=== PATIENT | female | born 1955 | race Caucasian/White ===

== ENCOUNTER → 2017-06-15 | Day surgery (SDC) | payer OTHER ==
--- NOTE | 2017-06-16 14:46 | PATH ---
Surgical Pathology Report Patient Name: YASMIN ACUNA [facility]. Rec. #: [id number] /Age/Gender: 1955 (Age: 61) / F Account: [id number] Location: [facility] Taken: 06/15/2017 Received: 06/15/2017 Reported: 06/16/2017 Physicians: Emilia Winston M.D. Specimen(s) Received A: LEFT BREAST CORE BIOPSY 2 O'CLOCK, 3 CM FN B: RIGHT BREAST 1:00 O'CLOCK, 7CM FN Clinical History Ultrasound findings: Suspicious Final Diagnosis A. LEFT BREAST, 2:00 3 CM FROM NIPPLE, ULTRASOUND GUIDED NEEDLE CORE BIOPSY: BENIGN BREAST TISSUE WITH FIBROCYSTIC CHANGES INCLUDING COLUMNAR CELL CHANGE, STROMAL FIBROSIS, AND DUCTAL DILATATION. B. RIGHT BREAST, 1:00 7 CM FROM NIPPLE, ULTRASOUND GUIDED NEEDLE CORE BIOPSY: WELL DIFFERENTIATED INVASIVE DUCTAL CARCINOMA, 0.3 CM IN LENGTH MEASURED ON THE SLIDE. Results of Estrogen Receptor (ER) and Progesterone Receptor (NE) studies performed on block "B" at [facility] are as follows: ER (clone [id number] mouse monoclonal antibody by [employer]): 100% nuclear staining with strong intensity (Positive). NE (clone16 mouse monoclonal antibody by Leica): ~80% nuclear staining with moderate intensity (Positive). Positive and negative controls (internal if applicable) show appropriate results. Formalin fixation and cold ischemic times are within current ASCO/CAP recommendations for ER, NE and Her2 testing. Comment: Immunohistochemical stains for p63 and smooth muscle myosin heavy chain on Specimen B show loss of the myoepithelial cell layer in the areas of carcinoma. Assays for HER-2/zohaib and Ki67 are pending, and a report will follow. Electronically Signed Roly Zhang M.D. Addendum Reported: 06/18/2017 Addendum Diagnosis Results of Her2 (IHC) & Ki-67 studies performed on block "B " at [place], [place] ([id number]) are as follows: Her2 IHC (EP3 from [employer], formerly known as [id number], using Brandon Polymer Refine detection kit): 1+ (Negative) Ki-67: up to 5% (Low proliferative index). Positive and negative controls (internal if applicable) show appropriate results. Katlyn Mane M.D. Gross Description A. Received in formalin labeled "left breast biopsy 2:00, 3 cmfn," is a 1.5 x 1.3 x 0.3 cm aggregate of multiple sarkar-yellow, irregular to cylindrical portions of fibroadipose tissue. The formalin is filtered and the specimen is entirely submitted in one cassette. B. Received in formalin labeled "right breast biopsy 1:00, 7 cmfn," is a 2.2 x 2.0 x 0.3 cm aggregate of multiple sarkar-yellow, irregular to cylindrical portions of fibroadipose tissue admixed with blood clot. The formalin is filtered and the specimen is entirely submitted in one cassette. Time to formalin fixation: 2 minutes Total formalin fixation time: Approximately 8 hours 06/15/2017
== END | disposition home or self-care (01) ==
LOC: FRADUS-SUR 13:11
PROVIDERS: ATTEND Surgery Surgical Oncology
PROC: 0HBV3ZX Excision of Bilateral Breast, Percutaneous Approach, Diagnostic (ICD-10-PCS; principal; 2017-06-15)
DX: C50.911 Malignant neoplasm of unspecified site of right female breast (principal); N60.12 Diffuse cystic mastopathy of left breast; Z17.0 Estrogen receptor positive status [ER+]
CPT/HCPCS: 19083; 87899; 88305-TC; 88341-TC; 88342-TC; A4648; G0204-TC

== ENCOUNTER 2017-07-07 08:37 | Day surgery (SDC) | payer OTHER ==
--- NOTE | 2017-07-01 09:24 | HP ---
Admitting History and Physical - Primary Care Physician PCP: Roge Nassar - Admission Chief Complaint: Right breast cancer History of Present Illness: 61 year old postmenapausal female with H/O of breast bx in 199 showing fibroadenoma and right excisional biopsies at 7:00 and 10:00. Mammogram and US 05/2017 showed suspicious mass right 1:00 7 cm fn 5x6x6 mm and left more benign density at 2:00 and 1 cm density. Bilateral US core biopsy 06/2017 Breast MRI 06/2017 showed left benign dz and right 1:00 newly diagnosed cancer. showed Right 1:00 invasive ductal carcinoma ER/ RI positive. and left 2:00 was benign. History Source: Patient Limitations to Obtaining History: No Limitations - Past Medical History Cardiovascular: Yes: HTN, Hyperlipdemia - Past Surgical History Past Surgical History: Yes: Hysterectomy (TAHBSO 2010 benign) Additional Past Surgical History: Right breast bx excisional benign - Smoking History Smoking history: Never smoked Have you smoked in the past 12 months: No - Alcohol/Substance Use Hx Alcohol Use: Yes (2 ) Home Medications - Allergies Allergies/Adverse Reactions: Allergies Allergy/AdvReac Type Severity Reaction Status Date / Time No Known Allergies Allergy Verified 07/01/17 09:26 - Home Medications Home Medications (free text): simvastatin ,telmisartan Family Disease History - Family Disease History Family Disease History: CA: Grandparent (pat GM uterine ca75), Father (gastric ca 80), Mother (breast ca 81) Other Family History: mat aunt uterine 50 Physical Examination Constitutional: Yes: Well Nourished Breast(s): Yes: Other (symmetrical C cup breast bilaterally slight thickening 12 :00 right upper region left breast negative no palpable adenopathy) Problem List - Problems (1) Breast cancer, right Code(s): C50.911 - MALIGNANT NEOPLASM OF UNSP SITE OF RIGHT FEMALE BREAST Qualifiers: Breast location: upper inner quadrant of breast Patient sex: female Assessment/Plan Right breast wide excision mammogram needle localization, sentenel node biopsy possible axillary dissection, lymphoscintigram, possible intraop radiation
[2017-07-01 14:22] VITALS: BMI 26.7
[2017-07-07] MEDS ORDERED: MIDAZOLAM HCL 2 MG/2 ML SINGLE DOSE VIAL ONE (12:58)
[2017-07-07] MEDS ORDERED: ISOSULFAN BLUE 10 MG/ML VIAL SQ ONE (13:21)
[2017-07-07] MEDS ORDERED: BUPIVACAINE HCL/PF 2.5 MG/ML - 30 ML VIAL IJ ONE (13:21)
[2017-07-07] MEDS ORDERED: oxyCODONE HCL 5 MG TABLET PO PRN (15:01)
[2017-07-07] MEDS ORDERED: ONDANSETRON 4 MG/2 ML VIAL IVPUSH PRN ×2 (15:01→16:30)
[2017-07-07] MEDS ORDERED: LACTATED RINGERS SOLUTION 1,000 ML IV SCH (15:15)
[2017-07-07] MEDS ORDERED: BUPIVACAINE HCL/PF 0.25% (2.5MG/ML) 10 ML VIAL IJ ONE ×2 (15:55→16:01)
[2017-07-07] MEDS ORDERED: KETOROLAC TROMETHAMINE 30 MG/1 ML VIAL IVPUSH PRN (16:30)
[2017-07-07] MEDS ORDERED: DEXTROSE 5%-0.45% SALINE 1,000 ML IV SCH (16:30)
--- NOTE | 2017-07-07 17:24 | OP ---
DATE OF OPERATION: 07/07/2017 PREOPERATIVE DIAGNOSIS: Right breast cancer, upper inner quadrant. POSTOPERATIVE DIAGNOSIS: Right breast cancer, upper inner quadrant. PROCEDURE: Right breast partial mastectomy with mammographic needle localization, with intraoperative radiation and tissue transfer 3 x 4 cm closure. SURGEON: Brooke Nassar MD LICENSED SALES ASSISTANT: DAGMAR Fairbanks COMPLICATIONS: None. Briefly, the patient is a 61-year-old, G3, P0, post-menopausal female of [place] descent with a family history with her mother who had breast cancer at age 81. The patient underwent the mammography in May 2017, showing a new density towards the right breast upper inner quadrant, 7 cm from the nipple, measuring about 6 mm. Core biopsy showed a well-differentiated, invasive duct cancer which was ER/VT positive and HER2/zohaib negative with a low Ki-67 at 5%. She underwent an MRI showing localized disease. The patient was advised of undergoing a right breast partial mastectomy and sentinel lymph node biopsy and was seen by Radiation Oncology preoperatively and was a good candidate for the Target US trial. The patient understood the need for the wide excision and decided to enter the Target US trial. She was brought in for the procedure on July 07, 2017. [facility] went to [facility] where a mammographic needle localization and lymphoscintigraphy were performed. She was brought to the [facility], and in the holding area, site verification was made and informed consent was obtained. She did sign consent for the Target US trial as well as a Quality of Life trial. Site verification was made, and informed consent was obtained. DESCRIPTION OF PROCEDURE: She was brought into the operating room, laid on the OR table in the supine position. Venodynes were placed on the lower extremities prior to induction. She received general laryngeal mask airway anesthesia. The right breast was sterilely prepped and draped in usual fashion with the right arm prepped in the field. Next, 3 mL of Lymphazurin blue were injected intradermally and peritumorally around the needle localization site. An incision was made just below the hair-bearing area of the right axilla, and dissection was undertaken. A blue lymphatic was seen coursing to 2 blue hot lymph nodes. The first sentinel lymph node had a 10-second gamma count of 1400. The second sentinel node had a 10-second gamma count of 2653. Background count after removal of these 2 nodes was 136. No other blue or hot nodes were found, and hemostasis was achieved using electrocautery. The wound was then closed using interrupted 2-0 plain suture, and then, the skin was closed using interrupted 3-0 deep dermal Vicryl suture and a 4-0 subcuticular Biosyn suture. At this point, the wide excision was undertaken. A small ellipse of skin was removed just below the needle-localization site in the upper inner aspect of the right breast. Incision was made. Dissection was undertaken around the needle localization until the breast tissue was completely removed from around the tip of the wire, with the wire in the middle of the specimen. The specimen was removed all the way down to the pectoralis major muscle. The tissue was then x-rayed, showing the clip in the middle of the specimen. The specimen was oriented with a long lateral, short superior suture and sent to Pathology in formalin. Separate margins were then taken on the superior, inferior, medial, lateral, and deep aspects with sutures marking the biopsy cavity side. At this point, intraoperative radiation was accomplished using the 4-cm INTRABEAM device which was placed sterilely in the wound. A 2-0 plain suture was used to pursestring the tissue around the device. Intraoperative radiation was then accomplished after about 25 minutes. The INTRABEAM device was then removed from the wide excision cavity. The breast tissue was then reapproximated as a 4 x 3 tissue transfer closure by undermining the breast tissue, reapproximated using 2-0 plain suture. The skin was closed using interrupted 3-0 deep dermal Vicryl suture and a running 4-0 subcuticular Biosyn suture. Mastisol and Steri-Strips were applied over the wound with a compressive dressing placed over this. She was placed in a surgical bra postoperatively. Next, 0.25% Marcaine was injected into the wound prior to closure for postoperative pain control. The patient had the laryngeal mask airway tube removed at the end of the case and was brought to the postanesthesia care unit. She was recovered and will be discharged home the same day. The patient will follow up in 1 week for a formal wound pathology check. All sponge and needle counts were correct at the end of the case, and estimated blood loss was about 20 mL. She was hemodynamically stable throughout. BROOKE NASSAR M.D. [id number]
[2017-07-07 17:35] VITALS: TEMP 97.1
[2017-07-07 18:09] VITALS: BP 117/72; PULSE 62
--- NOTE | 2017-07-07 18:53 | OP ---
DATE OF OPERATION: 07/07/2017 PREOPERATIVE DIAGNOSIS: Right breast cancer. POSTOPERATIVE DIAGNOSIS: Right breast cancer. PROCEDURE PERFORMED: Post lumpectomy intraoperative radiation therapy for right breast cancer. SURGEON: Brooke Nassar M.D. [employer]ARMWORK[employer]/RADIATION ONCOLOGIST: Lanie Barajas M.D. ANESTHESIA: General. COMPLICATIONS: None. INDICATIONS: The patient is a 61-year-old woman with a clinical stage IA invasive ductal carcinoma of the right breast, who elects breast conservation surgery with IORT treatment on the [facility]. DESCRIPTION OF PROCEDURE: Dr. Nassar performed a right lumpectomy and sentinel lymph node biopsy, which he has dictated. After excision of additional margins, the lumpectomy cavity was prepared and sized with a 4.0-cm diameter spherical applicator, which was placed into the operative cavity at 12:00. The surrounding breast tissues were cinched around the applicator with a Vicryl purse-string suture. I performed a clinical and ultrasound simulation to ensure that the applicator was located within the operative bed, with close apposition of the surrounding breast tissue to the surface of the applicator. Saline-soaked gauze was placed between the skin and breast tissue, ultrasound measurements demonstrated a minimum 1.5-cm [id number] distance at the 12 o'clock aspect of the applicator. Shielding material was placed over the breast to reduce scatter radiation. The patient received a total dose of 20 Gy, prescribed to 0 mm from the applicator surface, using 50 kV x-rays with the Intrabeam system. Prior to treatment, the system was double checked with appropriate physics water quality tester measures. The total time required for the treatment was 28 minutes 49 seconds at a dose rate of 0.709 Gy per minute. When the treatment was completed, survey of the patient and room confirmed that the Intrabeam source was off. There were no complications or unexpected interruptions. Dr. Nassar removed the radiation applicator from the patient and completed the surgery. The patient will be transferred to the recovery room following the surgery. LANIE BARAJAS M.D. [id number] cc: BROOKE NASSAR M.D. [facility]
--- NOTE | 2017-07-10 12:06 | PATH ---
Surgical Pathology Report Patient Name: YASMIN ACUNA Med. Rec. #: [id number] /Age/Gender: 1955 (Age: 61) / F Account: [id number] Location: [facility] Taken: 07/07/2017 Received: 07/07/2017 Reported: 07/10/2017 Physicians: Roge Nassar M.D. Specimen(s) Received A: RIGHT AXILLARY SENTINEL NODE #1 B: RIGHT AXILLARY SENTINEL NODE #2 C: RIGHT BREAST WIDE EXCISION D: RIGHT BREAST SUPERIOR MARGIN E: RIGHT BREAST MEDIAL MARGIN F: RIGHT BREAST INFERIOR MARGIN G: RIGHT BREAST LATERAL MARGIN H: RIGHT BREAST DEEP MARGIN Clinical History Invasive right breast cancer Final Diagnosis A. LYMPH NODE, RIGHT AXILLARY SENTINEL #1, EXCISION: ONE LYMPH NODE, NEGATIVE FOR METASTATIC CARCINOMA (0/1). B. LYMPH NODE, RIGHT AXILLARY SENTINEL #2, EXCISION: ONE LYMPH NODE, NEGATIVE FOR METASTATIC CARCINOMA (0/1). C. BREAST, RIGHT, WIDE EXCISION: INVASIVE DUCTAL CARCINOMA, WELL DIFFERENTIATED (TUBULE SCORE: 1/3; NUCLEAR GRADE: 2/3, MITOTIC SCORE: 1/3; TOTAL SHANTELLE SCORE: 4/9), MEASURING 6 MM IN GREATEST DIMENSION, MICROSCOPICALLY. DUCTAL CARCINOMA IN SITU (DCIS), CRIBRIFORM TYPE, LOW NUCLEAR GRADE IS PRESENT ADMIXED WITH INVASIVE CARCINOMA A MINOR COMPONENT. SURGICAL MARGINS ARE UNINVOLVED BY CARCINOMA; INVASIVE AND IN SITU CARCINOMA ARE AT 8 MM FROM THE CLOSEST (MEDIAL) MARGIN. SEE SPECIMENS D-H FOR FINAL MARGINS. SKIN IS PRESENT AND IS UNINVOLVED BY CARCINOMA. NO LYMPHOVASCULAR INVASION IS IDENTIFIED. PRIOR BIOPSY SITE CHANGES ARE PRESENT. PATHOLOGIC STAGE (pTNM):pT1b pN0. SEE ALSO INVASIVE CARCINOMA CASE SUMMARY BELOW. D. BREAST, RIGHT, SUPERIOR MARGIN, EXCISION: BENIGN BREAST TISSUE. E. BREAST, RIGHT, MEDIAL MARGIN, EXCISION: BENIGN BREAST TISSUE. F. BREAST, RIGHT, INFERIOR MARGIN, EXCISION: FOCAL ATYPICAL DUCTAL HYPERPLASIA (ADH), FOCAL ATYPICAL LOBULAR HYPERPLASIA (ALH), MICROCYST FORMATION AND COLUMNAR CELL CHANGES WITH ASSOCIATED CALCIFICATIONS. (SEE NOTE) Note: E-Cadherin immunostain (performed at [facility]) is negative in the foci of ALH, which supports lobular phenotype. G. BREAST, RIGHT, LATERAL MARGIN, EXCISION: BENIGN BREAST TISSUE. H. BREAST, RIGHT, DEEP MARGIN, EXCISION: BENIGN FIBROADIPOSE TISSUE AND SKELETAL MUSCLE. Comments Breast Invasive Carcinoma: Surgical Pathology Cancer Case Summary Based on AJCC/UICC TNM, 7th edition Procedure _X_ Excision with image-guided localization Lymph Node Sampling _X_ [place] lymph node(s) Specimen Laterality _X_ Right Tumor Size: Size of Largest Invasive Carcinoma : 6 mm Tumor Focality _X_ Single focus of invasive carcinoma Macroscopic and Microscopic Extent of Tumor Skin _X_ Invasive carcinoma does not invade into the dermis or epidermis Nipple _X_ Not applicable (excisions less than total mastectomy) Ductal Carcinoma In Situ (DCIS) _X_ DCIS is present _X_ as a minor component (< 25% of tumor) Histologic Type of Invasive Carcinoma : _X_ Invasive carcinoma of no special type (ductal, not otherwise specified) Histologic Grade: (Shantelle Histologic Score) Tubular Differentiation _X_ Score 1 Nuclear Pleomorphism _X_ Score 2 Mitotic Rate _X_ Score 1 Overall Grade _X_ Grade 1: scores of 3, 4, or 5 (well differentiated) Margins _X_ Margins uninvolved by invasive carcinoma Distance from closest margin: 8 mm from medial margin in wide excision C. Final medial margin E is negative for carcinoma. _X_ Margins uninvolved by DCIS Distance from closest margin: 8 mm from medial margin in wide excision C. Final medial margin E is negative for DCIS. Lymph-Vascular Invasion _X_ Not identified Lymph Nodes Total number of lymph nodes examined (sentinel and nonsentinel): 2 Number of sentinel lymph nodes examined: 2 Number of lymph nodes with macrometastases ( > 2 mm): 0 Number of lymph nodes with micrometastases (>0.2 mm to 2 mm and/or >200cells):0 Number of lymph nodes with isolated tumor cells (=0.2 mm and =200 cells): 0 Extranodal Extension _X_ Not applicable Pathologic Staging (pTNM) Primary Tumor (Invasive Carcinoma): pT1b Regional Lymph Nodes (pN): pN0 (sn) Biomarker Studies Results of ER and CA studies performed on or prior biopsy ([id number] ) at [facility] are as follows: ER (clone [id number] mouse monoclonal antibody by [employer]): 100 % nuclear staining with strong intensity (Positive). CA (clone16 mouse monoclonal antibody by [employer]) : ~80 % nuclear staining with moderate intensity (Positive). Results of Her2 (IHC) & Ki-67 studies performed on prior biopsy ( [id number]) at [place], [place] ( [id number] ) are as follows: Her2 IHC (EP3 from [employer], formerly known as [id number], using Brandon Polymer Refine detection kit): 1+ (Negative). Ki67: ~5% (Low proliferative index). Electronically Signed Adrianna Valencia M.D. Gross Description A. Received in formalin labeled "right axillary sentinel node #1," is a 1.8 x 1.0 x 0.5 cm sarkar, irregular lymph node with attached fat. The specimen is bisected and entirely submitted in one cassette. B. Received in formalin labeled "right axillary sentinel node #2," is a 0.6 x 0.4 x 0.3 cm sarkar, irregular lymph node. The specimen is submitted in toto in one cassette. C. Received in formalin, labeled "right breast wide excision," is a 5.2 x 3.8 x 3.7 cm. sarkar-yellow, irregular, portion of fibroadipose tissue with a needle localization wire present. There is a short suture marking the superior aspect and a long suture marking the lateral aspect, per the surgeon. The anterior surface displays a 2.8 x 0.4 cm sarkar, elliptical, unremarkable portion of skin. The specimen is inked as follows: Superior blue; inferior green; lateral red; medial yellow; deep black. The specimen is serially sectioned from anterior to deep. Sectioning reveals a 1.0 x 0.8 x 0.6 cm sarkar, firm, ill-defined mass associated with a focus of hemorrhage. The mass is at 0.6 cm from the medial margin and 0.9 cm from the superior margin. The remaining margins appear widely clear of the mass. Liner Inserter sections are submitted in 8 cassettes as follows: 1-full-face section of mass with medial and superior margins; 7-5-xbmlcklufd sections of mass (each with medial and superior margins); 5-inferior margin; 6-lateral margin; 7-skin; 8-deep margin. Time to formalin fixation: 39 minutes Total formalin fixation time: Approximately 27 hours. D. Received in formalin labeled "right breast superior margin," is a 2.6 x 1.4 x 0.9 cm irregular portion of fibroadipose tissue with a suture marking the biopsy cavity side, per the surgeon. The new margin is inked in blue and the specimen is serially sectioned. The specimen is entirely submitted in 3 cassettes. E. Received in formalin labeled "right breast medial margin," is a 2.3 x 1.3 x 0.8 cm irregular portion of fibroadipose tissue with a suture marking the biopsy cavity side, per the surgeon. The new margin is inked blue and the specimen is serially sectioned. The specimen is entirely submitted in 2 cassettes. F. Received in formalin labeled "right breast inferior margin," is a 2.3 x 2.0 x 0.8 cm irregular portion of fibroadipose tissue with a suture marking the biopsy cavity side, per the surgeon. The new margin is inked blue and the specimen is serially sectioned. The specimen is entirely submitted in 3 cassettes. G. Received in formalin labeled "right breast lateral margin," is a 2.1 x 2.0 x 0.9 cm irregular portion of fibroadipose tissue with a suture marking the biopsy cavity side, per the surgeon. The new margin is inked blue and the specimen is serially sectioned. The specimen is entirely submitted in 2 cassettes. H. Received in formalin labeled "right breast deep margin," is a 1.5 x 1.2 x 0.8 cm irregular portion of fibroadipose tissue with a suture marking the biopsy cavity side, per the surgeon. The new margin is inked blue and the specimen is serially sectioned. The specimen is entirely submitted in 2 cassettes. 07/08/2017 saudi07/08/2017
== END 2017-07-07 18:35 | disposition home or self-care (01) ==
LOC: FASU 08:37
PROVIDERS: ATTEND Surgery Surgical Oncology
PROC: 0HBT0ZZ Excision of Right Breast, Open Approach (ICD-10-PCS; principal; 2017-07-07 13:57)
PROC: DMY17ZZ Contact Radiation of Right Breast (ICD-10-PCS; 2017-07-07 13:57)
PROC: 0JX60ZC Transfer Chest Subcutaneous Tissue and Fascia with Skin, Subcutaneous Tissue and Fascia, Open Approach (ICD-10-PCS; 2017-07-07 13:57)
DX: C50.211 Malignant neoplasm of upper-inner quadrant of right female breast (principal); I10 Essential (primary) hypertension; E78.5 Hyperlipidemia, unspecified; Z90.710 Acquired absence of both cervix and uterus
CPT/HCPCS: 19281; 76641-TC-50; 77290; 77300; 77316; 77370-TC; 77424; 78195-TC; 88307-TC; 88342-TC; 94760; A9541; C9726